=== PATIENT | female | born 1935 ===

== ENCOUNTER → 2019-02-06 | Outpatient (CLI) | payer MEDICARE | LOC: RAD 14:11 ==

== ENCOUNTER 2019-03-23 12:28 | Outpatient (CLI) | payer MEDICARE | END 2019-03-23 12:29 | disposition home or self-care (01) | LOC: RAD 12:28 ==

== ENCOUNTER 2019-03-28 13:06 | Outpatient (CLI) | payer MEDICARE | END 2019-03-28 13:07 | disposition home or self-care (01) | LOC: RAD 13:06 | DX: Z12.31 Encounter for screening mammogram for malignant neoplasm of breast (principal); Z13.820 Encounter for screening for osteoporosis ==